=== PATIENT | female | born 1930 | race Two or more races ===

== ENCOUNTER 2018-01-24 12:26 | Outpatient (CLI) | payer OTHER ==
[~2018-01-24 12:26] MED LIST: CEPHALEXIN500 MG PO; PYRIDIUM DS200 MG PO
== END 2018-01-24 12:37 | disposition home or self-care (01) ==
LOC: NUCLEAR 12:26
DX: M81.0 Age-related osteoporosis without current pathological fracture (principal)

== ENCOUNTER 2018-05-08 11:46 | Outpatient (CLI) | payer OTHER | END 2018-05-08 17:00 | disposition home or self-care (01) | LOC: RAD 11:46 | DX: M17.0 Bilateral primary osteoarthritis of knee (principal) ==

== ENCOUNTER → 2019-02-06 | Outpatient (CLI) | payer OTHER | END | disposition home or self-care (01) | LOC: MAMO-SONO 12:33 | DX: Z12.31 Encounter for screening mammogram for malignant neoplasm of breast (principal); N60.11 Diffuse cystic mastopathy of right breast; N60.12 Diffuse cystic mastopathy of left breast ==

== ENCOUNTER 2020-03-26 10:24 | Outpatient (CLI) | payer OTHER | END 2020-03-26 10:29 | disposition home or self-care (01) | LOC: NUCLEAR 10:24 | PROVIDERS: ATTEND Obstetrics & Gynecology | DX: M81.0 Age-related osteoporosis without current pathological fracture (principal) ==